=== PATIENT | male | born 1955 | race Caucasian/White ===

== ENCOUNTER 2019-08-26 18:58 | Emergency (ER) | payer OTHER ==
--- OUTSIDE RECORDS SUMMARY | 2019-08-26 19:01 | XMS REPORT ---
:1955 Author Organization [facility] Address [address] [place] [address] Care Team Providers Name Role Phone Unavailable Unavailable Unavailable Problems This patient has no known problems. Allergies, Adverse Reactions, Alerts This patient has no known allergies or adverse reactions. Medications This patient has no known medications.
--- NOTE | 2019-08-26 20:21 | RAD REPORT ---
EXAM DESCRIPTION: RAD - Hand Left 3 View - 08/26/2019 8:15 pm CLINICAL HISTORY: PAIN COMPARISON: No comparisons FINDINGS: Oblique fracture involves the the proximal aspect of the fourth metacarpal.
--- NOTE | 2019-08-26 20:38 | ER ---
Nurse's Notes [facility] Name: Dannie Camejo Age: 63 yrs Sex: Male : 1955 Arrival Date: 08/26/2019 Time: 19:05 Bed 13 Private MD: Bong Gandhi Diagnosis: Unspecified fracture of fourth metacarpal bone, left hand-Closed oblique fracture of proximal aspect of fourth metacarpal Presentation: 08/26 19:07 Presenting complaint: Patient states: "I tripped at home last night and hurt my left jd3 hand.". Transition of care: patient was not received from another setting of care. Onset of symptoms was August 26, 2019. Risk Assessment: Do you want to hurt yourself or someone else? Patient reports no desire to harm self or others. Initial Sepsis Screen: Does the patient meet any 2 criteria? No. Patient's initial sepsis screen is negative. Does the patient have a suspected source of infection? No. Patient's initial sepsis screen is negative. Care prior to arrival: None. 19:07 Method Of Arrival: Ambulatory jd3 19:07 Acuity: PANFILO 4 jd3 Triage Assessment: 19:27 Injury Description: swollen left hand. rr5 Historical: - Allergies: 19:11 Tylenol; jd3 19:11 Advil; jd3 - Home Meds: 19:11 Aspirin Oral [Active]; Lisinopril Oral [Active]; Propranolol Oral [Active]; Metformin jd3 Oral [Active]; - PMHx: 19:11 Diabetes - NIDDM; Hypertension; High Cholesterol; jd3 - PSHx: 19:11 left hand; shoulder; hip; jd3 - Immunization history:: Adult Immunizations up to date, Flu vaccine is not up to date. - Coronavirus screen:: The patient has NOT traveled to [place], [place], or [place] in the past 14 days. Proceed with normal triage process as indicated. The patient has NOT had contact with known/suspected case of Coronavirus?. - Social history:: Smoking status: Patient reports the use of cigarette tobacco products, denies chronic smoking, but will smoke occasionally. - Ebola Screening: : Patient negative for fever greater than or equal to 101.5 degrees Fahrenheit, and additional compatible Ebola Virus Disease symptoms. Screenin:26 Abuse screen: Denies threats or abuse. Denies injuries from another. Nutritional rr5 screening: No deficits noted. Tuberculosis screening: No symptoms or risk factors identified. Fall Risk Fall in past 12 months (25 points). Total Ponce Fall Scale indicates Low Risk Score (25-44 pts). Fall prevention measures have been instituted. Side Rails Up X 2 Placed close to Nursing Station Frequent Obs/Assesments occuring As available Patient and Family Educated on Fall Prevention Program and strategies. Assessment: 19:27 General: Appears in no apparent distress. uncomfortable, Behavior is calm, cooperative, rr5 appropriate for age. Pain: Complains of pain in left hand Pain does not radiate. Pain currently is 10 out of 10 on a pain scale. Quality of pain is described as aching, Pain began 6 days ago Is intermittent. Neuro: Level of Consciousness is awake, alert, obeys commands, Oriented to person, place, time, situation, Appropriate for age. Cardiovascular: Capillary refill < 3 seconds Patient's skin is warm and dry. Respiratory: Airway is patent Respiratory effort is even, unlabored, Respiratory pattern is regular, symmetrical. GI: No signs and/or symptoms were reported involving the gastrointestinal system. : No signs and/or symptoms were reported regarding the genitourinary system. EENT: No signs and/or symptoms were reported regarding the EENT system. Derm: Skin is intact, is healthy with good turgor, Skin temperature is warm. Musculoskeletal: Capillary refill < 3 seconds, Swelling present in left hand. 20:30 Reassessment: Patient appears in no apparent distress at this time. No changes from rr5 previously documented assessment. Patient and/or family updated on plan of care and expected duration. Pain level reassessed. Patient is alert, oriented x 3, equal unlabored respirations, skin warm/dry/pink. awaiting for result. 21:15 Reassessment: Patient appears in no apparent distress at this time. Patient is alert, rr5 oriented x 3, equal unlabored respirations, skin warm/dry/pink. Ed provider rechecked the splint, discharge instruction given and explained without complaints made, verbalized understading. Patient denies pain at this time. Patient states feeling better. Patient states symptoms have improved. Vital Signs: 19:11 BP 129 / 98; Pulse 94; Resp 18 S; Temp 98.6(TE); Pulse Ox 97% on R/A; Weight 127.01 kg jd3 (R); Height 5 ft. 11 in. (180.34 cm) (R); Pain 10/10; 21:00 BP 128 / 98; Pulse 90; Resp 16; Pulse Ox 99% ; Pain 0/10; rr5 19:11 Body Mass Index 39.05 (127.01 kg, 180.34 cm) jd3 ED Course: 19:05 Patient arrived in ED. es 19:05 Bong Gandhi DO is Private Physician. es 19:08 Triage completed. jd3 19:12 Arm band placed on. jd3 19:20 Valeriano Duque NP is PHCP. pm1 19:20 Jigar Escobar MD is Attending Physician. pm1 19:26 Ankit Cavanaugh, BRYAN is Primary Nurse. rr5 19:27 Patient has correct armband on for positive identification. Bed in low position. Call rr5 light in reach. 20:18 Hand Left 3 View XRAY In Process Unspecified. EDMS 21:10 Orthoglass splint: Volar splint applied on left arm arm sling left arm. rr5 21:15 No provider procedures requiring assistance completed. Patient did not have IV access rr5 during this emergency room visit. Administered Medications: 20:50 Drug: traMADol 50 mg {Note: rass 0.} Route: PO; rr5 21:20 Follow up: Response: No adverse reaction; RASS: Alert and Calm (0) rr5 Outcome: 20:37 Discharge ordered by MD. pm1 21:15 Discharged to home ambulatory. rr5 21:15 Condition: stable 21:15 Discharge instructions given to patient, Instructed on discharge instructions, follow up and referral plans. medication usage, Demonstrated understanding of instructions, follow-up care, medications, Prescriptions given X 1. 21:20 Patient left the ED. rr5 Signatures: Dispatcher [employer] EDMS Mignon Roque Patrick, NP PASSPORT SUPPORT MANAGER pm1 Fabrizio Meyer RN RN jAnkit Abraham, RN RN rr5
--- NOTE | 2019-08-26 20:38 | EDPHYS ---
Physician Documentation [facility] Name: Dannie Camejo Age: 63 yrs Sex: Male : 1955 Arrival Date: 08/26/2019 Time: 19:05 Bed 13 Private MD: Bong Gandhi ED Physician Jigar Escobar HPI: 08/26 20:24 This 63 yrs old Male presents to ER via Ambulatory with complaints of Hand pm1 Injury. 20:24 The patient or guardian reports pain, swelling. The complaints affect the left hand. pm1 Context: The problem was sustained at home, resulted from Patient tripped and fell with his left hand over his chest. His left hand hit an object and he has had swelling since. Patient denies headache, head injury, neck pain, nausea, or vomiting. Onset: The symptoms/episode began/occurred yesterday. Modifying factors: The symptoms are alleviated by holding still, the symptoms are aggravated by movement. Associated signs and symptoms: Pertinent negatives: cyanosis distally, decreased sensation distally, numbness distally, tingling distally. Severity of symptoms: in the emergency department the symptoms are unchanged. The patient has not experienced similar symptoms in the past. The patient has not recently seen a physician. Historical: - Allergies: 19:11 Tylenol; jd3 19:11 Advil; jd3 - Home Meds: 19:11 Aspirin Oral [Active]; Lisinopril Oral [Active]; Propranolol Oral [Active]; Metformin jd3 Oral [Active]; - PMHx: 19:11 Diabetes - NIDDM; Hypertension; High Cholesterol; jd3 - PSHx: 19:11 left hand; shoulder; hip; jd3 - Immunization history:: Adult Immunizations up to date, Flu vaccine is not up to date. - Coronavirus screen:: The patient has NOT traveled to [place], [place], or [place] in the past 14 days. Proceed with normal triage process as indicated. The patient has NOT had contact with known/suspected case of Coronavirus?. - Social history:: Smoking status: Patient reports the use of cigarette tobacco products, denies chronic smoking, but will smoke occasionally. - Ebola Screening: : Patient negative for fever greater than or equal to 101.5 degrees Fahrenheit, and additional compatible Ebola Virus Disease symptoms. ROS: 20:24 Constitutional: Negative for fever, chills, and weight loss, Neck: Negative for injury, pm1 pain, and swelling, Cardiovascular: Negative for chest pain, palpitations, and edema, Respiratory: Negative for shortness of breath, cough, wheezing, and pleuritic chest pain, Abdomen/GI: Negative for abdominal pain, nausea, vomiting, diarrhea, and constipation, Back: Negative for injury and pain. 20:24 Skin: Negative for injury, rash, and discoloration, Neuro: Negative for headache, weakness, numbness, tingling, and seizure. 20:24 MS/extremity: Positive for pain, swelling, of the left hand, Negative for decreased range of motion. Exam: 20:24 Constitutional: This is a well developed, well nourished patient who is awake, alert, pm1 and in no acute distress. Head/Face: Normocephalic, atraumatic. Neck: Trachea midline, no thyromegaly or masses palpated, and no cervical lymphadenopathy. Supple, full range of motion without nuchal rigidity, or vertebral point tenderness. No Meningismus. Chest/axilla: Normal chest wall appearance and motion. Nontender with no deformity. No lesions are appreciated. Cardiovascular: Regular rate and rhythm with a normal S1 and S2. No gallops, murmurs, or rubs. Normal PMI, no JVD. No pulse deficits. Respiratory: Lungs have equal breath sounds bilaterally, clear to auscultation and percussion. No rales, rhonchi or wheezes noted. No increased work of breathing, no retractions or nasal flaring. Abdomen/GI: Soft, non-tender, with normal bowel sounds. No distension or tympany. No guarding or rebound. No evidence of tenderness throughout. Back: No spinal tenderness. No costovertebral tenderness. Full range of motion. Skin: Warm, dry with normal turgor. Normal color with no rashes, no lesions, and no evidence of cellulitis. 20:24 Musculoskeletal/extremity: Extremities: grossly normal except: noted in the left hand: pain, swelling, There is no evidence of decreased ROM, Circulation is intact in all extremities. 20:24 Neuro: Orientation: is normal, Motor: is normal, moves all fours. Vital Signs: 19:11 BP 129 / 98; Pulse 94; Resp 18 S; Temp 98.6(TE); Pulse Ox 97% on R/A; Weight 127.01 kg jd3 (R); Height 5 ft. 11 in. (180.34 cm) (R); Pain 10/10; 21:00 BP 128 / 98; Pulse 90; Resp 16; Pulse Ox 99% ; Pain 0/10; rr5 19:11 Body Mass Index 39.05 (127.01 kg, 180.34 cm) jd3 Procedures: 21:20 Splinting: Splint applied to left hand using Orthoglass splint, applied by tech. pm1 Examined by me, post splint application: neurovascular intact, 2+ distal pulses palpable, brisk capillary refill noted, Patient tolerated well. MDM: 19:25 Patient medically screened. pm1 20:29 Data reviewed: vital signs. Data interpreted: Pulse oximetry: on room air is 97 %. pm1 Interpretation: normal. Counseling: I had a detailed discussion with the patient and/or guardian regarding: the historical points, exam findings, and any diagnostic results supporting the discharge/admit diagnosis, radiology results, the need for outpatient follow up, for definitive care, a hand specialist, a orthopedic surgeon, to return to the emergency department if symptoms worsen or persist or if there are any questions or concerns that arise at home. 08/26 19:28 Order name: Hand Left 3 View XRAY; Complete Time: 20:24 pm1 08/26 20:29 Order name: Volar Wrist Splint; Complete Time: 21:20 pm1 08/26 21:19 Order name: Arm-Sling; Complete Time: 21:20 rr5 Administered Medications: 20:50 Drug: traMADol 50 mg {Note: rass 0.} Route: PO; rr5 21:20 Follow up: Response: No adverse reaction; RASS: Alert and Calm (0) rr5 Disposition: 08/26/19 20:37 Discharged to Home. Impression: Unspecified fracture of fourth metacarpal bone, left hand - Closed oblique fracture of proximal aspect of fourth metacarpal. - Condition is Stable. - Discharge Instructions: Cast or Splint Care, Adult, Metacarpal Fracture. - Prescriptions for Tramadol 50 mg Oral Tablet - take 1 tablet by ORAL route every 8 hours as needed; 12 tablet. - Medication Reconciliation Form, Thank You Letter, Antibiotic Education, Prescription Opioid Use form. - Follow up: Emergency Department; When: As needed; Reason: Worsening of condition. Follow up: Private Physician; When: 2 - 3 days; Reason: Recheck today's complaints, Continuance of care, Re-evaluation by your physician. - Problem is new. - Symptoms have improved. Addendum: 08/28/2019 07:47 Co-signature as Attending Physician, Jigar Escobar MD I agree with the assessment and t w4 plan of care. Signatures: Dispatcher [employer] EDMS Valeriano Duque, PLASTERING CONTRACTOR PLASTERING CONTRACTOR pm1 Fabrizio Meyer, RN RN jd3 Jigar Escobar MD MD tw4 Ankit Cavanaugh RN RN rr5 Corrections: (The following items were deleted from the chart) 08/26 21:20 20:37 08/26/2019 20:37 Discharged to Home. Impression: Unspecified fracture of fourth rr5 metacarpal bone, left hand - Closed oblique fracture of proximal aspect of fourth metacarpal. Condition is Stable. Forms are Medication Reconciliation Form, Thank You Letter, Antibiotic Education, Prescription Opioid Use. Follow up: Emergency Department; When: As needed; Reason: Worsening of condition. Follow up: Private Physician; When: 2 - 3 days; Reason: Recheck today's complaints, Continuance of care, Re-evaluation by your physician. Problem is new. Symptoms have improved. pm1
[2019-08-26] MEDS ORDERED: TRAMADOL HCL 50 MG TAB ONE (20:53)
[2019-08-26 21:57] VITALS: BP 129/98; TEMP 98.6; O2SAT 97
== END 2019-08-26 21:20 | disposition home or self-care (01) ==
LOC: ER 18:58
PROC: 2W3KX1Z Immobilization of Left Finger using Splint (ICD-10-PCS; principal; 2019-08-26)
DX: S62.395A Other fracture of fourth metacarpal bone, left hand, initial encounter for closed fracture (principal); W01.0XXA Fall on same level from slipping, tripping and stumbling without subsequent striking against object, initial encounter; Y93.9 Activity, unspecified; Y92.009 Unspecified place in unspecified non-institutional (private) residence as the place of occurrence of the external cause; Z79.82 Long term (current) use of aspirin; Z88.6 Allergy status to analgesic agent; I10 Essential (primary) hypertension; E11.9 Type 2 diabetes mellitus without complications; E78.00 Pure hypercholesterolemia, unspecified
CPT/HCPCS: 99284